=== PATIENT | male | born 1995 | race American Indian/Alaskan Native ===

== ENCOUNTER 2017-08-10 20:04 | Emergency (ER) | payer SELFPAY ==
[2017-08-10] MEDS ORDERED: TYLENOL ONE (20:09)
[2017-08-10 20:12] VITALS: BP 125/77
[2017-08-10] MEDS ORDERED: TYLENOL PO ONE (20:12)
== END 2017-08-10 23:29 | disposition left against medical advice (07) ==
LOC: ED 20:04
DX: R07.0 Pain in throat (principal); Z53.21 Procedure and treatment not carried out due to patient leaving prior to being seen by health care provider

== ENCOUNTER 2017-08-11 07:47 | Emergency (ER) | payer OTHER ==
[2017-08-11] MEDS ORDERED: MOTRIN PO ONE (11:01)
--- NOTE | 2017-08-11 11:01 | Emergency Department Report ---
HPI - General Chief Complaint: Sore Throat Time Seen by Provider: 08/11/17 10:00 - HPI HPI: Patient report that he was treated at a clinic for chlamydia and now he has sore throat, fever and headache. Denies any respiratory symptoms. He thinks he has the possible reaction from the azithromycin and Suprax that they placed him on. Denies any nausea or vomiting. Denies any neck pain or stiffness. Sore throat is 8 out of 10 and worse with swallowing. Denies any drooling. Denies any nasal congestion or cough. Headache is located frontally and toilet at 10. He said they gave him one dose of azithromycin and a dose of Suprax. Denies any penile drainage, urinary burning frequency or urgency. ED Past Medical Hx - Past Medical History Previous Medical History?: Yes Additional medical history: Chlamydia - Surgical History Past Surgical History?: No - Family History Family history: no significant - Social History Smoking Status: Former Smoker Substance Use Type: Alcohol, Prescribed - Medications Home Medications: Home Medications Medication Instructions Recorded Confirmed Last Taken Type Ibuprofen [Motrin] 600 mg PO Q6H PRN #16 tablet 08/11/17 Unknown Rx Penicillin V Potassium 500 mg PO Q8H 10 Days #30 tablet 08/11/17 Unknown Rx ED Review of Systems ROS: Stated complaint: SORES ON THROAT/FEVER/TRISTAN Other details as noted in HPI Comment: All other systems reviewed and negative Constitutional: chills, fever ENT: throat pain. denies: ear pain, dental pain, hearing loss, congestion Respiratory: no symptoms reported Cardiovascular: denies: chest pain, palpitations, dyspnea on exertion, edema, syncope, paroxysmal nocturnal dyspnea Gastrointestinal: denies: abdominal pain, nausea, vomiting Genitourinary: denies: dysuria, frequency, hematuria, discharge Musculoskeletal: denies: back pain, joint swelling, arthralgia, myalgia Skin: denies: rash Neurological: headache. denies: weakness, numbness, paresthesias, confusion, abnormal gait, vertigo Physical Exam - Physical Exam Vital Signs: Vital Signs 08/11/17 08:26 Temperature 99.9 F H Pulse Rate 106 H Respiratory 16 Rate Blood Pressure 114/71 O2 Sat by Pulse 97 Oximetry General: This is a 22-year-old male well-nourished well-developed in no acute distress. Physical Exam: Head: Normocephalic, atraumatic, no abrasion, no bruising and no contusion. Eyes: Biateral pupils equal and reactive to light, bilateral EOM intact.. Bilateral conjunctival and sclera without injection, normal accommodation. No nystagmus Mouth: Mucosa dry, positive pharyngeal exudate and erythema. No drooling. No peritonsillar abscesses. Uvula is midline and oral airways patent. Ears: Bilateral TMs pearly haji Bilateral EAC without any redness swelling or drainage. No mastoid bone tenderness Nose: Bilateral nasal mucosa normal ,Maxillary and frontal sinuses non-tender to palpate. Neck: Supple, positive anterior Cervical adenopathy, full range of motion and no C-spine tenderness. No swelling or tracheal deviation normal reflexes Cardiovascular: S1, S2. Tachycardic at 106 ,Regular rhythm. No murmur. Capillary refill is less then 3 seconds. Lungs: Clear to auscultate bilaterally. No rhonchi, wheezes or rales. No chest wall tenderness. No chest contusion. No bruising to chest.. Abdomen: Non-tender to palpate in all quadrants, no guarding or rebound tenderness, positive bowel sounds in all quadrants. No CVA tenderness. No hernia, bruit or mass. No rigidity or distention. Extremities: No clubbing, cyanosis or edema. +2 pulses. No neurovascular compromise Skin: Clean, dry and intact. No rash or lesions. Neurological: GCS at 15, Pt is alert and oriented 3 speech is clear . Bilateral hand asset protection specialist strong and equal. Normal gait. Negative Romberg and no pronator drift. Normal Reflexes. No motor or sensory deficit Psych: Normal mood and behavior ED Course Vital Signs 08/11/17 08:26 Temperature 99.9 F H Pulse Rate 106 H Respiratory 16 Rate Blood Pressure 114/71 O2 Sat by Pulse 97 Oximetry Vital Signs 08/11/17 08/11/17 08:26 11:49 Temperature 99.9 F H 99.1 F Pulse Rate 106 H 90 Respiratory 16 18 Rate Blood Pressure 114/71 Blood Pressure 118/72 [Left] O2 Sat by Pulse 97 Oximetry - Reevaluation(s) Reevaluation #1: 08/11/17 11:52 She received Motrin 800 mg in the emergency room for sore throat. He is able to tolerate liquids without any difficulties. ED Medical Decision Making - Medical Decision Making ED course: Patient with complaint of sore throat, fever and headache. Physical findings for exudative pharyngitis, and large cervical lymph nodes, fever and complains of headache and based on [facility] criteria patient will be treated for strep. I discussed this patient and he voiced understanding .I also told him that he is not having an allergic reaction. Patient was given Motrin 800 mg emergency room which relieved the sore throat and easily able tolerate oral liquids. Patient discharged home with prescription for penicillin V and Motrin and to follow-up with is primary care physician in 2 days and if he does not have one to follow-up at [facility]. Critical care attestation.: If time is entered above; I have spent that time in minutes in the direct care of this critically ill patient, excluding procedure time. ED Disposition Clinical Impression: Exudative pharyngitis, Fever in adult, Cervical adenopathy Headache, acute Qualifiers: Headache type: unspecified Intractability: not intractable Qualified Code(s): R51 - Headache Disposition: DC- TO HOME OR SELFCARE Is pt being admited?: No Does the pt Need Aspirin: No Condition: Stable Instructions: Strep Throat (ED), Fever in Adults (ED), Acute Headache (ED) Additional Instructions: Please increase the fluid intake to 2-3 L of water daily Avoid spicy food and carbonated beverages as this can be irritated T and throat Take penicillin for strep throat. Take Motrin for headache and/or sore throat Follow-up with your primary care physician in 2 days and if he did not have one and follow-up with outside Medical Center. Prescriptions: Ibuprofen [Motrin] 600 mg PO Q6H PRN #16 tablet PRN Reason: fever and/or sore throat Penicillin V Potassium 500 mg PO Q8H 10 Days #30 tablet Referrals: PRIMARY CAREMD [Primary Care Provider] - 08/13/17 [facility] [Outside] - 08/13/17 Forms: Work/School Release Form(ED)
[2017-08-11 11:50] VITALS: BP 118/72
== END 2017-08-11 12:08 | disposition home or self-care (01) ==
LOC: ED 07:47
DX: J02.9 Acute pharyngitis, unspecified (principal); R50.9 Fever, unspecified; R51 Headache; Z87.891 Personal history of nicotine dependence; R59.0 Localized enlarged lymph nodes
CPT/HCPCS: 99282